=== PATIENT | male | born 1975 | race Caucasian/White ===

== ENCOUNTER 2016-11-02 06:50 | Inpatient (IN) | payer SELFPAY ==
[~2016-11-02] VITALS: Ht 180.3 cm; Wt 107.8 kg
[2016-11-02] VITALS (8 sets, daily range): BP systolic 144–188; BP diastolic 75–111; PULSE 70–122; RESP 18–22; TEMP 97.6–99.2; O2SAT 94–95
[~2016-11-02 06:50] MED LIST: BENT20TA PO; CARA1TAB6 PO; PRIL20CA9 PO
--- NOTE | 2016-11-02 07:27 | PD ---
HPI Chief Complaint: Abdominal Pain Time Seen by Provider: 07:12 Travel History International Travel<30 days: No Contact w/Intl Traveler<30days: No Traveled to known affect area: No History of Present Illness HPI This patient complains of abdominal pain. He is a alcoholic who was drinking heavily yesterday. He was seen here yesterday and I reviewed that workup and no. He has history of drug-seeking behavior. He complains of epigastric pain. It sounds like he gets flares of epigastric pain when he drinks but continues to drink. Complains of nausea, some emesis without blood in it. No diarrhea or lower quadrant abdominal pains. He has no gallbladder. Denies fever. Symptoms severity is moderate. No alleviating factors. Duration 2 days PFSH Past Medical History Diminished Hearing: No Gastrointestinal Disorders: Yes GERD: Yes Hepatitis: Yes (C) Hypertension: No Musculoskeletal: Yes (CHRONIC BACK PAIN) Pancreatitis: Yes Tetanus Vaccination: < 5 Years Past Surgical History Cholecystectomy: Yes (2005) Social History Alcohol Use: Yes (PT ADMITS TO DRINKING alcohol daily; unknown amount mixed drinks 11/01/16) Tobacco Use: No ("QUIT OCT 2015" hx cigs 1 ppd) Substance Use: No (QUIT 2011: HEROIN) Allergies-Medications (Allergen,Severity, Reaction): Coded Allergies: No Known Allergies (Unverified , 11/02/16) Reported Meds & Prescriptions Reported Meds & Active Scripts Active Prilosec (Omeprazole) 20 Mg Cap 20 Mg PO DAILY Review of Systems General / Constitutional: No: Fever Eyes: No: Visual changes HENT: No: Headaches Cardiovascular: No: Chest Pain or Discomfort Respiratory: No: Shortness of Breath Gastrointestinal: Positive: Nausea, Vomiting, Abdominal Pain Genitourinary: No: Dysuria Musculoskeletal: No: Pain Skin: No Rash Neurologic: No: Weakness Psychiatric: Positive: Substance Abuse, No: Depression Endocrine: No: Polydipsia Hematologic/Lymphatic: No: Easy Bruising Physical Exam Narrative GENERAL: Well-nourished, well-developed patient with epigastric pain. SKIN: Warm and dry. HEAD: Atraumatic. Normocephalic. EYES: Pupils equal and round. No scleral icterus. No injection or drainage. ENT: No nasal bleeding or discharge. Mucous membranes pink and moist. NECK: Trachea midline. No JVD. CARDIOVASCULAR: Regular rate and rhythm. No murmur appreciated. RESPIRATORY: No accessory muscle use. Clear to auscultation. Breath sounds equal bilaterally. GASTROINTESTINAL: Abdomen soft, epigastric is tender without rebound or guarding , nondistended. Hepatic and splenic margins not palpable. MUSCULOSKELETAL: No obvious deformities. No clubbing. No cyanosis. No edema. NEUROLOGICAL: Awake and alert. No obvious cranial nerve deficits. Motor grossly within normal limits. Normal speech. PSYCHIATRIC: Appropriate mood and affect; insight and judgment poor . Data Data Last Documented VS Vital Signs Date Time Temp Pulse Resp B/P Pulse Ox O2 Delivery O2 Flow Rate FiO2 11/02/16 08:35 93 18 173/96 95 Room Air 11/02/16 07:07 98.1 Orders Complete Blood Count With Diff (11/02/16 07:23) Comprehensive Metabolic Panel (11/02/16 07:23) Lipase (11/02/16 07:23) Iv Access Insert/Monitor (11/02/16 07:23) Ecg Monitoring (11/02/16 07:23) Oximetry (11/02/16 07:23) NPO (11/02/16 07:23) Morphine Inj (Morphine Inj) (11/02/16 07:30) Ondansetron Inj (Zofran Inj) (11/02/16 07:30) Sodium Chloride 0.9% Flush (Ns Flush) (11/02/16 07:30) Sodium Chlor 0.9% 1000 Ml Inj (Ns 1000 M (11/02/16 07:30) Admit To Inpatient (11/02/16 ) Vital Signs (Adult) Q4H (11/02/16 08:23) Activity Oob With Assistance (11/02/16 08:23) Diet Npo (11/02/16 Breakfast) Ondansetron Inj (Zofran Inj) (11/02/16 08:30) Magnesium Hydroxide Liq (Milk Of Magnesi (11/02/16 08:30) Comprehensive Metabolic Panel (11/03/16 06:00) Scd Bilateral/Knee High RENO.BID (11/02/16 08:23) Luis Felipe Bilateral/Knee High RENO.QSHIFT (11/02/16 08:23) Naloxone Inj (Narcan Inj) (11/02/16 08:30) Inpatient Certification (11/02/16 ) Ns + Kcl 20 Meq Inj (Ns + Kcl 20 Meq Inj (11/02/16 08:30) Morphine Inj (Morphine Inj) (11/02/16 08:30) Lipase (11/03/16 06:00) Alcohol Withdrawal Asmt-Ciwa Q4HX18 (11/02/16 08:23) Flumazenil Inj (Romazicon Inj) (11/02/16 08:30) Lorazepam (Ativan) (11/02/16 08:30) Lorazepam Inj (Ativan Inj) (11/02/16 08:30) Lorazepam (Ativan) (11/02/16 08:30) Lorazepam Inj (Ativan Inj) (11/02/16 08:30) Lorazepam Inj (Ativan Inj) (11/02/16 08:30) Lorazepam Inj (Ativan Inj) (11/02/16 08:30) Admit Order (Ed Use Only) (11/02/16 08:53) Labs Laboratory Tests Test 11/02/16 07:30 White Blood Count 6.8 TH/MM3 Red Blood Count 5.70 MIL/MM3 Hemoglobin 17.2 GM/DL Hematocrit 50.5 % Mean Corpuscular Volume 88.5 FL Mean Corpuscular Hemoglobin 30.1 PG Mean Corpuscular Hemoglobin 34.0 % Concent Red Cell Distribution Width 12.8 % Platelet Count 288 TH/MM3 Mean Platelet Volume 8.9 FL Neutrophils (%) (Auto) 59.8 % Lymphocytes (%) (Auto) 27.9 % Monocytes (%) (Auto) 10.0 % Eosinophils (%) (Auto) 0.2 % Basophils (%) (Auto) 2.1 % Neutrophils # (Auto) 4.1 TH/MM3 Lymphocytes # (Auto) 1.9 TH/MM3 Monocytes # (Auto) 0.7 TH/MM3 Eosinophils # (Auto) 0.0 TH/MM3 Basophils # (Auto) 0.1 TH/MM3 CBC Comment DIFF FINAL Differential Comment Sodium Level 139 MEQ/L Potassium Level 3.7 MEQ/L Chloride Level 102 MEQ/L Carbon Dioxide Level 24.9 MEQ/L Anion Gap 12 MEQ/L Blood Urea Nitrogen 15 MG/DL Creatinine 0.98 MG/DL Estimat Glomerular Filtration 83 ML/MIN Rate Random Glucose 223 MG/DL Calcium Level 8.6 MG/DL Total Bilirubin 1.0 MG/DL Aspartate Amino Transf 308 U/L (AST/SGOT) Alanine Aminotransferase 413 U/L (ALT/SGPT) Alkaline Phosphatase 147 U/L Total Protein 8.1 GM/DL Albumin 3.7 GM/DL Lipase 1289 U/L MDM Medical Decision Making Medical Screen Exam Complete: Yes Emergency Medical Condition: Yes Medical Record Reviewed: Yes Differential Diagnosis Differential diagnosis includes pancreatitis, biliary colic, hepatitis, GERD, peptic ulcer disease. Narrative Course I have reviewed the patient's electronic medical record. Reviewed yesterday's visit as well as several other during the course of this past year. He's had 3 CTs of the abdomen and pelvis this year all without emergent findings IV placed I gave him 1 L normal saline IV and IV Zofran and 1 dose of 4 mg IV morphine CBC is normal Metabolic profile is normal LFTs are elevated as expected Lipase is elevated at 1300 On recheck patient is still having a lot of pain and nausea and tachycardic Admitted him for bowel rest and IV fluid and symptom relief with acute alcohol- induced pancreatitis and discussed with hospitalist Diagnosis Primary Impression: Alcohol-induced acute pancreatitis Qualified Code: K85.20 - Alcohol-induced acute pancreatitis without infection or necrosis Admitting Information Admitting Physician Requests: Admit Ganesh Akers MD Nov 02, 2016 07:27
[2016-11-02] MEDS ORDERED: MORPHINE SULFATE 4 MG/ML INJ IV PUSH ONE (07:30)
[2016-11-02] MEDS ORDERED: ONDANSETRON HCL 4 MG/2 ML VIAL IVP ONE (07:30)
[2016-11-02] MEDS ORDERED: SODIUM CHLOR 0.9% 1000 ML INJ 1,000 ML IV ONE (07:30)
[2016-11-02] MEDS: SODIUM CHLORIDE 0.9% FLUSH 5 ML FLUSH IVF PRN ×2 (07:32→09:01)
[2016-11-02 07:47] LABS: AUTOMATED NEUTROPHIL # 4.1 TH/MM3 (1.8-7.7); BASOPHIL # 0.1 TH/MM3 (0-0.2); BASOPHIL % 2.1 % (0.0-2.0); EOSINOPHIL % 0.2 % (0.0-4.0); HEMATOCRIT 50.5 % (39.0-51.0); HEMO FLAGS DIFF FINAL; LYMPH % 27.9 % (9.0-44.0); LYMPHOCYTE # 1.9 TH/MM3 (1.0-4.8); MEAN CELL VOLUME 88.5 FL (80.0-100.0); MEAN CORPUSCULAR HEMOGLOBIN 30.1 PG (27.0-34.0); NEUT % 59.8 % (16.0-70.0); PLATELET COUNT 288 TH/MM3 (150-450); RED CELL DISTRIBUTION WIDTH 12.8 % (11.6-17.2); WHITE BLOOD COUNT 6.8 TH/MM3 (4.0-11.0)
[2016-11-02 07:53] LABS: CHLORIDE 102 MEQ/L (98-107); POTASSIUM 3.7 MEQ/L (3.5-5.1); SODIUM (NA) 139 MEQ/L (136-145)
[2016-11-02 07:57] LABS: ANION GAP 12 MEQ/L (5-15); BICARBONATE 24.9 MEQ/L (21.0-32.0); BLOOD UREA NITROGEN 15 MG/DL (7-18)
[2016-11-02 07:59] LABS: ALT (GPT) 413 U/L (12-78); AST (GOT) 308 U/L (15-37); GLOMERULAR FILTRATION RATE 83 ML/MIN (>89)
[2016-11-02 08:02] LABS: ALKALINE PHOSPHATASE 147 U/L (45-117)
[2016-11-02] MEDS ORDERED: LORazepam 2 MG/ML VIAL IV PUSH PRN ×3 (08:30→14:30)
[2016-11-02] MEDS ORDERED: LORazepam 2 MG TAB PO PRN (08:30)
[2016-11-02] MEDS ORDERED: MAGNESIUM HYDROXIDE SUSP 30 ML CUP PO PRN (08:30)
[2016-11-02] MEDS ORDERED: FLUMAZENIL 0.5 MG/5 ML VIAL IV PUSH PRN (08:30)
[2016-11-02] MEDS ORDERED: NALOXONE HCL 0.4 MG/ML AMP IV PRN (08:30)
[2016-11-02] MEDS: MORPHINE SULFATE 4 MG/ML INJ IV PUSH PRN ×2 (09:01→11:54)
[2016-11-02] MEDS: ONDANSETRON HCL 4 MG/2 ML VIAL IVP PRN ×3 (09:01→22:19)
[2016-11-02] MEDS: NS + KCL 20 MEQ INJ 1,000 ML IV SCH ×3 (09:01→18:08)
[2016-11-02] MEDS: LORazepam 2 MG/ML VIAL IV PUSH PRN ×3 (11:08→21:02)
--- NOTE | 2016-11-02 13:55 | HHI.HP ---
[facility] Service [facility] Primary Care Physician No Primary Care Physician Admission Diagnosis acute alcohol induced pancreatitis Diagnoses: (1) Alcohol-induced acute pancreatitis Diagnosis: Principal (2) Elevated LFTs Diagnosis: Principal (3) Alcohol abuse Diagnosis: Principal Chief Complaint: "pancreatitis" Travel History International Travel<30 Days: No Contact w/Intl Traveler <30 Da: No Traveled to Known Affected Are: No History of Present Illness 41-year-old male with history of hepatitis C, GERD, chronic back pain , drug and alcohol abuse presents with complaint of pancreatitis. Patient states he was hospitalized for this most recently last year. He states he has "a lot" of pain pointing to epigastric region and has had bilious vomiting. states pain started 4 days ago. Patient admits to radiation of pain to back. Admits to diarrhea. He denies any chest pain. Denies dysuria or constipation. Patient rates his last alcoholic drink was yesterday and his states that he will binge drink every 3-4 months. 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 Patient only takes ibuprofen for his back pain. Patient was evaluated in ED yesterday for same symptoms and diagnosed with alcoholic gastritis and prescribed Carafate , Bentyl, and Prilosec. Review of Systems ROS Limitations: Clinical Condition (severe pain) Eyes: DENIES: Blurred vision Cardiovascular: DENIES: Chest pain Gastrointestinal: COMPLAINS OF: Abdominal pain, Diarrhea Genitourinary: DENIES: Dysuria Musculoskeletal: COMPLAINS OF: Back pain Neurologic: DENIES: Headache Past Family Social History Past Medical History Hepatitis C; has not received treatment. GERD Chronic back pain Past Surgical History Cholecystectomy Reported Medications Prilosec (Omeprazole) 20 Mg Cap 20 Mg PO DAILY Ibuprofen for back pain Allergies: Coded Allergies: No Known Allergies (Unverified , 11/02/16) Family History No significant medical problems. Social History Patient admits to alcohol use. states he binge drinks every 3-4 months. ED note indicates the patient drinks alcohol daily with an unknown amount of mixed drinks on 11/01/16. Patient denies current cigarette smoking; quit in Oct 2015 per EMR. Patient denies illicit drug use. EMR indicates the patient quit using heroin in 2011. Physical Exam Vital Signs Vital Signs Date Time Temp Pulse Resp B/P Pulse Ox O2 Delivery O2 Flow Rate FiO2 11/02/16 11:00 98.0 90 19 150/86 95 11/02/16 09:06 16 11/02/16 08:35 93 18 173/96 95 Room Air 11/02/16 07:38 100 18 150/92 95 Room Air 11/02/16 07:38 18 11/02/16 07:36 18 95 Room Air 11/02/16 07:07 98.1 122 20 159/92 95 Room Air 11/02/16 06:59 98.1 122 22 166/111 95 Physical Exam GENERAL: This is a well-nourished, well-developed patient who appears in significant pain. SKIN: No rashes, ecchymoses or lesions. Face has red complexion. HEAD: Atraumatic. Normocephalic. EYES: Pupils normal. No scleral icterus. No injection or drainage. ENT: MMM. Airway patent. NECK: Trachea midline. CARDIOVASCULAR: Regular rate and rhythm. RESPIRATORY: Clear to auscultation. Breath sounds equal bilaterally. No wheezes , rales, or rhonchi. GASTROINTESTINAL: NABS. Abdomen soft, nondistended. Tender over epigastric region. MUSCULOSKELETAL: No lower extremity edema bilaterally. NEUROLOGICAL: Awake and alert. Motor grossly within normal limits. Normal speech. Laboratory Laboratory Tests Test 11/02/16 07:30 White Blood Count 6.8 Red Blood Count 5.70 Hemoglobin 17.2 Hematocrit 50.5 Mean Corpuscular Volume 88.5 Mean Corpuscular Hemoglobin 30.1 Mean Corpuscular Hemoglobin 34.0 Concent Red Cell Distribution Width 12.8 Platelet Count 288 Mean Platelet Volume 8.9 Neutrophils (%) (Auto) 59.8 Lymphocytes (%) (Auto) 27.9 Monocytes (%) (Auto) 10.0 Eosinophils (%) (Auto) 0.2 Basophils (%) (Auto) 2.1 Neutrophils # (Auto) 4.1 Lymphocytes # (Auto) 1.9 Monocytes # (Auto) 0.7 Eosinophils # (Auto) 0.0 Basophils # (Auto) 0.1 CBC Comment DIFF FINAL Differential Comment Sodium Level 139 Potassium Level 3.7 Chloride Level 102 Carbon Dioxide Level 24.9 Anion Gap 12 Blood Urea Nitrogen 15 Creatinine 0.98 Estimat Glomerular Filtration 83 Rate Random Glucose 223 Calcium Level 8.6 Total Bilirubin 1.0 Aspartate Amino Transf 308 (AST/SGOT) Alanine Aminotransferase 413 (ALT/SGPT) Alkaline Phosphatase 147 Total Protein 8.1 Albumin 3.7 Lipase 1289 Result Diagram: 11/02/16 0730 11/02/16 0730 Assessment and Plan Assessment and Plan 41-year-old male with: Alcohol-induced pancreatitis: Lipase 1289. Glucose 223. White blood cell count normal. -IVF -Alternate Zofran and Reglan for nausea -Dilaudid prn pain as directed -NPO, bowel rest Elevated LFTs: AST 308, ALT 413, and alkaline phosphatase 147 elevated from prior labs yesterday and in September. Could be related to pancreatitis, but patient also has history of hepatitis C, and has not undergone treatment. Patient has h/o cholecystectomy. -Monitor LFTs. Alcohol abuse/withdrawal: Last drink yesterday per patient. Patient is hypertensive and tachycardic which could be related to pain versus EtOH withdrawal. -CIWA protocol with Ativan -Alcohol withdrawal precautions -Monitor vitals -Clonidine prn for SBP>180. DVT prevention: TEDs/SCDs. Written by Angela Pena PA-C acting as scribe for Dr. Patten on 11/02/16 at ~1315. The documentation accurately reflects the work and decisions performed face-to- face by me Dr. Patten on 11/02/16 at ~1315. Discussed Condition With ED physician, patient Physician Certification 2 Midnight Certification Type: Admission for Inpatient Services Order for Inpatient Services The services are ordered in accordance with Medicare regulations or non- Medicare payer requirements, as applicable. In the case of services not specified as inpatient-only, they are appropriately provided as inpatient services in accordance with the 2-midnight benchmark. Estimated LOS (days): 2 days is the estimated time the patient will need to remain in the hospital, assuming treatment plan goals are met and no additional complications. Post-Hospital Plan: Home Problem Qualifiers (1) Alcohol-induced acute pancreatitis: Qualified Code: K85.20 - Alcohol-induced acute pancreatitis without infection or necrosis Angela Pena Nov 02, 2016 13:55
[2016-11-02] MEDS ORDERED: HYDROmorphone HCL PF 1 MG/ML VIAL IV PUSH PRN (14:00)
[2016-11-02] MEDS: METOCLOPRAMIDE HCL 10 MG/2 ML VIAL IVS PRN ×2 (14:05→20:12)
[2016-11-02] MEDS: HYDROmorphone HCL PF 1 MG/ML VIAL IV PUSH PRN ×3 (14:06→22:19)
[2016-11-02] MEDS: cloNIDine HCL 0.1 MG TAB PO PRN (20:13)
[2016-11-02] MEDS: ENALAPRILAT 1.25 MG/ML VIAL IV PRN (23:46)
[2016-11-03] VITALS: BP 178/108; PULSE 109; RESP 20; TEMP 98.5; O2SAT 94
[2016-11-03] MEDS: LORazepam 2 MG/ML VIAL IV PUSH PRN ×3 (00:11→10:29)
[2016-11-03] MEDS: HYDROmorphone HCL PF 1 MG/ML VIAL IV PUSH PRN ×7 (02:25→22:55)
[2016-11-03 04:00] VITALS: BP 186/104; PULSE 90; RESP 20; TEMP 98.5; O2SAT 96
[2016-11-03] MEDS: METOCLOPRAMIDE HCL 10 MG/2 ML VIAL IVS PRN ×3 (04:57→22:57)
[2016-11-03] MEDS: cloNIDine HCL 0.1 MG TAB PO PRN ×2 (05:25→23:55)
[2016-11-03] MEDS: NS + KCL 20 MEQ INJ 1,000 ML IV SCH ×2 (05:26→16:30)
[2016-11-03 06:11] LABS: CHLORIDE 104 MEQ/L (98-107); POTASSIUM 3.7 MEQ/L (3.5-5.1); SODIUM (NA) 139 MEQ/L (136-145)
[2016-11-03 06:16] LABS: ANION GAP 9 MEQ/L (5-15); BICARBONATE 25.7 MEQ/L (21.0-32.0); BLOOD UREA NITROGEN 11 MG/DL (7-18)
[2016-11-03 06:18] LABS: ALT (GPT) 286 U/L (12-78); AST (GOT) 141 U/L (15-37); GLOMERULAR FILTRATION RATE 87 ML/MIN (>89)
[2016-11-03 06:20] LABS: TOTAL BILIRUBIN ADULT 2.6 MG/DL (0.2-1.0)
[2016-11-03 06:21] LABS: ALKALINE PHOSPHATASE 123 U/L (45-117)
[2016-11-03 08:00] VITALS: BP 178/103; PULSE 100; RESP 20; TEMP 97.8; O2SAT 95
[2016-11-03] MEDS: ENALAPRILAT 1.25 MG/ML VIAL IV PRN ×3 (08:41→19:50)
--- NOTE | 2016-11-03 11:10 | HHI.PR ---
Subjective Remarks Follow-up pancreatitis, alcohol withdrawal. Still reporting significant abdominal pain. States that the pain medication works for about 3 hours, but then the pain becomes severe again. No nausea or vomiting this morning. Objective Vitals Vital Signs Date Time Temp Pulse Resp B/P Pulse Ox O2 Delivery O2 Flow Rate FiO2 11/03/16 08:00 97.8 100 20 178/103 95 11/03/16 04:00 98.5 90 20 186/104 96 11/03/16 00:00 98.5 109 20 178/108 94 Automatic Cuff 11/02/16 20:00 99.2 70 20 188/98 94 11/02/16 16:00 97.6 88 18 144/75 95 I/O 11/02/16 11/02/16 11/02/16 11/03/16 11/03/16 11/03/16 07:00 15:00 23:00 07:00 15:00 23:00 Intake Total 1000 ml 60 ml 60 ml Output Total 320 ml Balance 1000 ml 60 ml -260 ml Intake Oral 60 ml 60 ml IV Total 1000 ml Output Urine Total 320 ml Bladder Scan Volume Amount 99 ml # Voids 2 3 # Bowel Movements 0 Result Diagram: 11/02/16 0730 11/03/16 0535 Objective Remarks General: No acute distress. Appears uncomfortable. Heart: Regular rate and rhythm. No murmur. Lungs: Clear to auscultation bilaterally. No wheezes, rales, or rhonchi. Breathing is nonlabored. Abdomen: Soft, nontender, nondistended. Voluntary guarding. Extremities: No lower extremity edema. Psych: Alert and oriented. Urinary Catheter: No Vascular Central Line Catheter: No A/P Problem List: (1) Alcohol-induced acute pancreatitis ICD Code: K85.20 Status: Acute (2) Elevated LFTs ICD Code: R94.5 Status: Acute (3) Alcohol abuse ICD Code: F10.10 Status: Chronic Assessment and Plan 1. Alcohol induced pancreatitis: Lipase increasing. Nothing by mouth except meds. Continue pain control, IV fluids. Antiemetics as needed. Check abdominal CT. 2. Elevated LFTs: Secondary to alcohol abuse, history of hepatitis C. Trending down. Monitor labs. 3. Alcohol abuse, withdrawal: Continue CIWA protocol. Withdrawal precautions. 4. DVT prophylaxis: SCDs, ISSAC hose. Problem Qualifiers (1) Alcohol-induced acute pancreatitis: Qualified Code: K85.20 - Alcohol-induced acute pancreatitis without infection or necrosis Ganesh Patten MD Nov 03, 2016 11:10
[2016-11-03] MEDS: PANTOPRAZOLE SOD 40 MG DELAYED RELEASE TAB PO SCH (11:11)
[2016-11-03 12:00] VITALS: BP 167/108; PULSE 100; RESP 20; TEMP 99.4; O2SAT 95
[2016-11-03] MEDS ORDERED: DIATRIZOATE MEGLUM/DIATRIZOATE SOD 9 ML CUP PO ONE (12:00)
[2016-11-03] MEDS ORDERED: HYDROmorphone HCL PF 1 MG/ML VIAL IV PUSH PRN (14:00)
[2016-11-03] MEDS ORDERED: IOHEXOL 300 MG/ML 50 ML BTL (for RAD DIAG) IV ONE (14:16)
--- NOTE | 2016-11-03 14:59 | RADHPO ---
EXAM DATE/TIME: 11/03/2016 14:00 [facility] COMPARISON: CT ABDOMEN & PELVIS W CONTRAST, September 24, 2016, 8:55. INDICATIONS : Increasing abdominal pain with pancreatitis. IV CONTRAST: 92 cc Omnipaque 300 (iohexol) IV ORAL CONTRAST: No oral contrast ingested. RADIATION DOSE: 22.60 CTDIvol (mGy) MEDICAL HISTORY : Pancreatitis. SURGICAL HISTORY : Cholecystectomy. ENCOUNTER: Initial ACUITY: 4 - 6 days PAIN SCALE: 7/10 LOCATION: Bilateral upper quadrant TECHNIQUE: Volumetric scanning of the abdomen and pelvis was performed. Using automated exposure control and ad justment of the mA and/or kV according to patient size, radiation dose was kept as low as reasonably achievable to obtain optimal diagnostic quality images. FINDINGS: LOWER LUNGS: There is atelectasis at the lung bases. LIVER: The liver measures 21.5 cm in length. No focal lesion is seen. There has been prior cholecystectomy c lips in the gallbladder fossa. There is no dilation of the biliary tree. SPLEEN: Normal size without lesion. PANCREAS: There is inflammatory change surrounding the pancreas. No pancreatic duct dilatation is present and n o pancreatic mass is seen. There is no abnormal fluid collection or pancreatic necrosis. KIDNEYS: Normal in size and shape. There is no mass, stone or hydronephrosis. ADRENAL GLANDS: Within normal limits. VASCULAR: There is no aortic aneurysm. BOWEL/MESENTERY: The stomach, small bowel, and colon demonstrate no acute abnormality. There is no free intraperitone al air. There is trace free fluid in the pelvis. A small hiatal hernia is present. ABDOMINAL WALL: Within normal limits. RETROPERITONEUM: There is no lymphadenopathy. BLADDER: No wall thickening or mass. REPRODUCTIVE: Within normal limits. INGUINAL: There is no lymphadenopathy or hernia. MUSCULOSKELETAL: No acute osseous abnormality is identified. CONCLUSION: 1. Abnormal inflammatory changes surrounding the pancreas diagnostic of acute pancreatitis. No acute pancreatitis associated complications are present. 2. There is a small volume of free fluid in the pelvis likely secondary to the pancreatic inflammatio n. 3. Small hiatal hernia. Yannick Colvin MD on November 03, 2016 at 14:50 Board Certified Radiologist. This report was verified electronically.
[2016-11-03 16:00] VITALS: BP 150/98; PULSE 100; RESP 20; TEMP 98.3; O2SAT 94
[2016-11-03] MEDS: ONDANSETRON HCL 4 MG/2 ML VIAL IVP PRN (19:50)
[2016-11-03] MEDS: LORazepam 1 MG TAB PO PRN ×2 (19:52→23:55)
[2016-11-03 20:33] VITALS: PULSE 102; RESP 22; TEMP 99.3; O2SAT 94
[2016-11-04] VITALS: BP 169/113; PULSE 108; RESP 20; TEMP 99.5; O2SAT 95
[2016-11-04] MEDS: HYDROmorphone HCL PF 1 MG/ML VIAL IV PUSH PRN ×7 (01:56→21:57)
[2016-11-04] MEDS: NS + KCL 20 MEQ INJ 1,000 ML IV SCH ×3 (01:58→20:14)
[2016-11-04 04:00] VITALS: BP_SYST 170; BP_SYST 174; BP_DIAS 100; PULSE 71; RESP 18; TEMP 97.7; O2SAT 95
[2016-11-04] MEDS: ENALAPRILAT 1.25 MG/ML VIAL IV PRN ×2 (04:58→12:38)
[2016-11-04] MEDS: ONDANSETRON HCL 4 MG/2 ML VIAL IVP PRN (05:00)
[2016-11-04 06:29] LABS: AUTOMATED NEUTROPHIL # 6.1 TH/MM3 (1.8-7.7); BASOPHIL # 0.1 TH/MM3 (0-0.2); BASOPHIL % 0.9 % (0.0-2.0); EOSINOPHIL # 0.1 TH/MM3 (0-0.4); EOSINOPHIL % 0.6 % (0.0-4.0); HEMATOCRIT 46.5 % (39.0-51.0); HEMO FLAGS DIFF FINAL; LYMPH % 19.3 % (9.0-44.0); LYMPHOCYTE # 1.7 TH/MM3 (1.0-4.8); MEAN CELL VOLUME 89.4 FL (80.0-100.0); MEAN CORPUSCULAR HEMOGLOBIN 29.9 PG (27.0-34.0); MEAN CORPUSCULAR HGB CONC 33.4 % (32.0-36.0); MONO % 10.8 % (0.0-8.0); NEUT % 68.4 % (16.0-70.0); PLATELET COUNT 190 TH/MM3 (150-450); RED CELL DISTRIBUTION WIDTH 12.4 % (11.6-17.2); WHITE BLOOD COUNT 8.9 TH/MM3 (4.0-11.0)
[2016-11-04 06:37] LABS: CHLORIDE 104 MEQ/L (98-107); POTASSIUM 3.9 MEQ/L (3.5-5.1); SODIUM (NA) 138 MEQ/L (136-145)
[2016-11-04 06:42] LABS: ANION GAP 11 MEQ/L (5-15); BICARBONATE 23.3 MEQ/L (21.0-32.0); BLOOD UREA NITROGEN 12 MG/DL (7-18); MAGNESIUM 1.7 MG/DL (1.5-2.5)
[2016-11-04 06:45] LABS: ALT (GPT) 187 U/L (12-78); AST (GOT) 98 U/L (15-37); GLOMERULAR FILTRATION RATE 103 ML/MIN (>89)
[2016-11-04 06:47] LABS: TOTAL BILIRUBIN ADULT 2.5 MG/DL (0.2-1.0)
[2016-11-04 06:48] LABS: ALKALINE PHOSPHATASE 102 U/L (45-117)
[2016-11-04] MEDS: PANTOPRAZOLE SOD 40 MG DELAYED RELEASE TAB PO SCH (07:56)
[2016-11-04] MEDS: cloNIDine HCL 0.1 MG TAB PO PRN (07:56)
[2016-11-04 08:00] VITALS: BP 165/105; PULSE 96; RESP 20; TEMP 99.4; O2SAT 95
--- NOTE | 2016-11-04 11:07 | HHI.PR ---
Subjective Remarks Follow up pancreatitis. Still having significant pain. No vomiting, but still having nausea. Objective Vitals Vital Signs Date Time Temp Pulse Resp B/P Pulse Ox O2 Delivery O2 Flow Rate FiO2 11/04/16 08:00 99.4 96 20 165/105 95 11/04/16 04:00 97.7 71 18 174/100 95 11/04/16 00:00 99.5 108 20 169/113 95 11/03/16 20:33 99.3 102 22 94 Manual Cuff/Auscultation 11/03/16 16:00 98.3 100 20 150/98 94 11/03/16 12:00 99.4 100 20 167/108 95 I/O 11/03/16 11/03/16 11/03/16 11/04/16 11/04/16 11/04/16 07:00 15:00 23:00 07:00 15:00 23:00 Intake Total 60 ml 0 ml 1150 ml Output Total 320 ml 800 ml 605 ml Balance -260 ml -800 ml 1150 ml -605 ml Intake Oral 60 ml 0 ml IV Total 1150 ml Output Urine Total 320 ml 800 ml 605 ml Bladder Scan Volume Amount 99 ml # Voids 3 2 # Bowel Movements 0 1 Result Diagram: 11/04/16 0543 11/04/16 0543 Imaging Last Impressions Abdomen/Pelvis CT 11/03/16 1203 Signed Impressions: Service Date/Time: October 14:00 - CONCLUSION: 1. Abnormal inflammatory changes surrounding the pancreas diagnostic of acute pancreatitis. No acute pancreatitis associated complications are present. 2. There is a small volume of free fluid in the pelvis likely secondary to the pancreatic inflammation. 3. Small hiatal hernia. Yannick Colvin MD Objective Remarks General: No acute distress. Appears uncomfortable. Heart: Regular rate and rhythm. No murmur. Lungs: Clear to auscultation bilaterally. No wheezes, rales, or rhonchi. Breathing is nonlabored. Abdomen: Soft, tender to palpation in the right upper quadrant without guarding , nondistended. Extremities: No lower extremity edema. Psych: Alert and oriented. Urinary Catheter: No Vascular Central Line Catheter: No A/P Problem List: (1) Alcohol-induced acute pancreatitis ICD Code: K85.20 Status: Acute (2) Elevated LFTs ICD Code: R94.5 Status: Acute (3) Alcohol abuse ICD Code: F10.10 Status: Chronic Assessment and Plan 1. Alcohol induced pancreatitis: Lipase improving. Nothing by mouth except meds. Continue pain control, IV fluids. Antiemetics as needed. CT abdomen/ pelvis shows inflammation around the pancreas. 2. Elevated LFTs: Secondary to alcohol abuse, history of hepatitis C. Trending down. Monitor labs. 3. Alcohol abuse, withdrawal: Continue CIWA protocol. Withdrawal precautions. 4. DVT prophylaxis: ISSAC O[place]. Problem Qualifiers (1) Alcohol-induced acute pancreatitis: Qualified Code: K85.20 - Alcohol-induced acute pancreatitis without infection or necrosis Ganesh Patten MD Nov 04, 2016 11:07
[2016-11-04 12:00] VITALS: BP 135/105; PULSE 101; RESP 20; TEMP 97; O2SAT 96
[2016-11-04 18:40] VITALS: BP 155/90; PULSE 88; RESP 20; TEMP 98.5; O2SAT 96
[2016-11-04] MEDS ORDERED: oxyCODONE/ACETAMINOPHEN 7.5 MG/325 MG TAB PO PRN (18:45)
[2016-11-04 20:00] VITALS: BP 178/102; PULSE 89; RESP 20; TEMP 98.3; O2SAT 97
[2016-11-04] MEDS: oxyCODONE/ACETAMINOPHEN 10 MG/325 MG TAB PO PRN ×2 (20:15→23:49)
[2016-11-05] VITALS: BP 168/98; PULSE 90; RESP 21; TEMP 98.1; O2SAT 92
[2016-11-05] MEDS: HYDROmorphone HCL PF 1 MG/ML VIAL IV PUSH PRN ×6 (01:59→22:31)
[2016-11-05 04:00] VITALS: BP 161/91; PULSE 89; RESP 20; TEMP 98.1; O2SAT 96
[2016-11-05] MEDS: oxyCODONE/ACETAMINOPHEN 10 MG/325 MG TAB PO PRN ×5 (04:19→20:32)
[2016-11-05] MEDS: NS + KCL 20 MEQ INJ 1,000 ML IV SCH ×2 (06:04→16:06)
[2016-11-05 08:00] VITALS: BP 150/87; PULSE 97; RESP 18; TEMP 96.9; O2SAT 96
[2016-11-05 08:10] LABS: CHLORIDE 101 MEQ/L (98-107); POTASSIUM 3.8 MEQ/L (3.5-5.1); SODIUM (NA) 136 MEQ/L (136-145)
[2016-11-05 08:16] LABS: ANION GAP 12 MEQ/L (5-15); BICARBONATE 22.7 MEQ/L (21.0-32.0); BLOOD UREA NITROGEN 12 MG/DL (7-18)
[2016-11-05 08:19] LABS: ALT (GPT) 161 U/L (12-78); AST (GOT) 104 U/L (15-37); GLOMERULAR FILTRATION RATE 110 ML/MIN (>89)
[2016-11-05] MEDS: PANTOPRAZOLE SOD 40 MG DELAYED RELEASE TAB PO SCH (08:20)
[2016-11-05 08:22] LABS: ALKALINE PHOSPHATASE 100 U/L (45-117)
[2016-11-05 12:00] VITALS: BP 150/87; PULSE 92; RESP 18; TEMP 96.9; O2SAT 96
[2016-11-05 16:00] VITALS: BP 162/89; PULSE 89; RESP 20; TEMP 98.3; O2SAT 96
--- NOTE | 2016-11-05 16:19 | HHI.PR ---
Subjective Remarks The patient reports ongoing pain today, essentially unchanged. No nausea or vomiting. Tolerating small amounts of clear liquids. Objective Vitals Vital Signs Date Time Temp Pulse Resp B/P Pulse Ox O2 Delivery O2 Flow Rate FiO2 11/05/16 12:00 96.9 92 18 150/87 96 11/05/16 08:00 96.9 97 18 150/87 96 11/05/16 05:15 20 11/05/16 04:00 98.1 89 20 161/91 96 11/05/16 02:19 20 11/05/16 00:00 98.1 90 21 168/98 92 11/04/16 20:00 98.3 89 20 178/102 97 11/04/16 18:40 98.5 88 20 155/90 96 I/O 11/04/16 11/04/16 11/04/16 11/05/16 11/05/16 11/05/16 07:00 15:00 23:00 07:00 15:00 23:00 Intake Total 0 ml 800 ml 800 ml 1147 ml Output Total 605 ml 600 ml Balance -605 ml 0 ml 800 ml 200 ml 1147 ml Intake Oral 0 ml IV Total 800 ml 800 ml 1147 ml Output Urine Total 605 ml 600 ml # Voids 2 2 1 # Bowel Movements 1 Result Diagram: 11/04/16 0543 11/05/16 0639 Imaging Last Impressions Abdomen/Pelvis CT 11/03/16 1203 Signed Impressions: Service Date/Time: October 14:00 - CONCLUSION: 1. Abnormal inflammatory changes surrounding the pancreas diagnostic of acute pancreatitis. No acute pancreatitis associated complications are present. 2. There is a small volume of free fluid in the pelvis likely secondary to the pancreatic inflammation. 3. Small hiatal hernia. Yannick Colvin MD Objective Remarks General: No acute distress. Appears uncomfortable. Heart: Regular rate and rhythm. No murmur. Lungs: Clear to auscultation bilaterally. No wheezes, rales, or rhonchi. Breathing is nonlabored. Abdomen: Soft, tender to palpation in the right upper quadrant with voluntary guarding, nondistended. Extremities: No lower extremity edema. Psych: Alert and oriented. Urinary Catheter: No Vascular Central Line Catheter: No A/P Problem List: (1) Alcohol-induced acute pancreatitis ICD Code: K85.20 Status: Acute (2) Elevated LFTs ICD Code: R94.5 Status: Acute (3) Alcohol abuse ICD Code: F10.10 Status: Chronic Assessment and Plan 1. Alcohol induced pancreatitis: Lipase trending down. Advanced to clear liquid diet. Continue pain control, IV fluids. Antiemetics as needed. CT abdomen/ pelvis shows inflammation around the pancreas. 2. Elevated LFTs: Secondary to alcohol abuse, history of hepatitis C. Trending down. Monitor labs. 3. Alcohol abuse, withdrawal: Continue CIWA protocol. Withdrawal precautions. No longer requiring lorazepam. 4. DVT prophylaxis: SCDs, ISSAC sidhu. Problem Qualifiers (1) Alcohol-induced acute pancreatitis: Qualified Code: K85.20 - Alcohol-induced acute pancreatitis without infection or necrosis Ganesh Patten MD Nov 05, 2016 16:18
[2016-11-05 20:00] VITALS: BP 162/111; PULSE 70; RESP 20; TEMP 97.1; O2SAT 99
[2016-11-05] MEDS: cloNIDine HCL 0.1 MG TAB PO PRN (20:31)
[2016-11-06] VITALS: BP 163/105; PULSE 70; RESP 20; TEMP 97.6; O2SAT 94
[2016-11-06] MEDS: oxyCODONE/ACETAMINOPHEN 10 MG/325 MG TAB PO PRN ×5 (00:28→19:49)
[2016-11-06] MEDS: NS + KCL 20 MEQ INJ 1,000 ML IV SCH ×3 (02:38→21:48)
[2016-11-06] MEDS: HYDROmorphone HCL PF 1 MG/ML VIAL IV PUSH PRN ×5 (02:38→21:45)
[2016-11-06 04:00] VITALS: BP 161/105; PULSE 81; RESP 20; TEMP 97.7; O2SAT 97
[2016-11-06 08:00] VITALS: BP 185/110; PULSE 85; RESP 20; TEMP 97.8; O2SAT 96
[2016-11-06] MEDS: PANTOPRAZOLE SOD 40 MG DELAYED RELEASE TAB PO SCH (08:35)
[2016-11-06] MEDS: cloNIDine HCL 0.1 MG TAB PO PRN (08:35)
[2016-11-06 08:47] LABS: CHLORIDE 101 MEQ/L (98-107); SODIUM (NA) 137 MEQ/L (136-145)
[2016-11-06 08:51] LABS: ANION GAP 13 MEQ/L (5-15); BICARBONATE 23.4 MEQ/L (21.0-32.0); BLOOD UREA NITROGEN 12 MG/DL (7-18)
[2016-11-06 08:54] LABS: ALT (GPT) 146 U/L (12-78); AST (GOT) 94 U/L (15-37); GLOMERULAR FILTRATION RATE 103 ML/MIN (>89)
[2016-11-06 08:56] LABS: TOTAL BILIRUBIN ADULT 1.7 MG/DL (0.2-1.0)
[2016-11-06 08:57] LABS: ALKALINE PHOSPHATASE 101 U/L (45-117)
[2016-11-06 12:00] VITALS: BP 135/79; PULSE 82; RESP 20; TEMP 97.2; O2SAT 94
[2016-11-06 15:56] VITALS: BP 145/88; PULSE 78; RESP 20; TEMP 97.3; O2SAT 96
--- NOTE | 2016-11-06 16:32 | HHI.PR ---
Subjective Remarks Follow-up for pancreatitis. Patient states he is feeling a lot better and his appetite is coming back but he states when the pain medication wears off he continues to have pain. Objective Vitals Vital Signs Date Time Temp Pulse Resp B/P Pulse Ox O2 Delivery O2 Flow Rate FiO2 11/06/16 15:56 97.3 78 20 145/88 96 11/06/16 12:00 97.2 82 20 135/79 94 11/06/16 08:00 97.8 85 20 185/110 96 11/06/16 07:27 18 11/06/16 04:00 97.7 81 20 161/105 97 11/06/16 03:10 20 11/06/16 00:00 97.6 70 20 163/105 94 11/05/16 20:00 97.1 70 20 162/111 99 I/O 11/05/16 11/05/16 11/05/16 11/06/16 11/06/16 11/06/16 07:00 15:00 23:00 07:00 15:00 23:00 Intake Total 800 ml 2227 ml 800 ml 750 ml Output Total 600 ml 400 ml 900 ml Balance 200 ml 1827 ml -100 ml 750 ml Intake Oral 280 ml 750 ml IV Total 800 ml 1947 ml 800 ml Output Urine Total 600 ml 400 ml 900 ml # Voids 6 # Bowel Movements 0 0 1 Result Diagram: 11/04/16 0543 11/06/16 0816 Imaging Last Impressions Abdomen/Pelvis CT 11/03/16 1203 Signed Impressions: Service Date/Time: October 14:00 - CONCLUSION: 1. Abnormal inflammatory changes surrounding the pancreas diagnostic of acute pancreatitis. No acute pancreatitis associated complications are present. 2. There is a small volume of free fluid in the pelvis likely secondary to the pancreatic inflammation. 3. Small hiatal hernia. Yannick Colvin MD Objective Remarks GENERAL: Well-nourished, well-developed patient in no apparent distress. SKIN: Warm and dry. HEAD: Atraumatic. Normocephalic. EYES: No scleral icterus. CARDIOVASCULAR: Regular rate and rhythm. RESPIRATORY: No accessory muscle use. RR normal. GASTROINTESTINAL: Abdomen soft, but tender over the right upper quadrant and epigastric region. No guarding. MUSCULOSKELETAL: No lower extremity edema. NEUROLOGICAL: Awake and alert. Motor grossly within normal limits. Normal speech. PSYCHIATRIC: Appropriate mood and affect; insight and judgment normal. Urinary Catheter: No Vascular Central Line Catheter: No A/P Problem List: (1) Alcohol-induced acute pancreatitis ICD Code: K85.20 Status: Acute (2) Elevated LFTs ICD Code: R94.5 Status: Acute (3) Alcohol abuse ICD Code: F10.10 Status: Chronic Assessment and Plan 41-year-old male with: 1. Alcohol induced pancreatitis: Lipase initially trending downward, but now starting to rise again. Advanced to clear liquid diet yesterday. Patient's pain is improved, but returns when pain medication wears off. Continue pain control, IV fluids. Antiemetics as needed. CT abdomen/pelvis shows inflammation around the pancreas. Consult GI. Discussed with Dr. Brewer. 2. Elevated LFTs: Secondary to alcohol abuse, history of hepatitis C. Trending down. Monitor labs. 3. Alcohol abuse, withdrawal: Continue CIWA protocol. Withdrawal precautions. No longer requiring lorazepam. 4. DVT prophylaxis: SCDs, ISSAC sidhu. Written by Angela Pena PA-C acting as scribe for Dr. Patten on 11/06/16 at 1620. The documentation accurately reflects the work and decisions performed face-to- face by me Dr. Patten on 11/06/16 at 1620. Problem Qualifiers (1) Alcohol-induced acute pancreatitis: Qualified Code: K85.20 - Alcohol-induced acute pancreatitis without infection or necrosis Angela Pena Nov 06, 2016 16:31 Ganesh Patten MD Nov 06, 2016 16:43
[2016-11-06 20:00] VITALS: BP 173/99; PULSE 70; RESP 20; TEMP 98; O2SAT 95
--- NOTE | 2016-11-06 20:48 | MB ---
cc: JOSEY CORTEZ MD DATE OF CONSULTATION: 11/06/2016. REASON FOR CONSULTATION: Acute pancreatitis. HISTORY OF PRESENT ILLNESS: This is a 41-year-old male patient with history of chronic hepatitis C, recurrent attacks of pancreatitis and gastroesophageal reflux disease who presented to the hospital with an acute flare-up of pancreatitis. The patient had a previous similar attack in the past that was attributed to alcohol use. The patient admitted to drinking binges of alcohol before each attack of pancreatitis and this episode also he had heavy drinking days before developing these symptoms. The patient was evaluated in the emergency room and was admitted for further evaluation. His labs showed increase in pancreatic enzymes along with increased liver enzymes. The patient was kept n.p.o. and treated properly with IV fluids and pain control. During hospitalization, the patient was noted to have improvement in his pancreatic enzymes followed by a recurrence of his symptoms and further increase in his lipase, which suggests further workup and GI consultation. At the current time, the patient is still symptomatic feeling slightly better than admission time, but still having some abdominal pain and nausea and kept on a clear liquid diet. PAST MEDICAL HISTORY: 1. Recurrent attacks of pancreatitis. 2. Gastroesophageal reflux disease (GERD). 3. Chronic back pain. 4. Hepatitis C of unknown genotype. PAST SURGICAL HISTORY: Cholecystectomy. MEDICATIONS: 1. Prilosec. 2. Ibuprofen PRN. ALLERGIES: NO KNOWN DRUG ALLERGIES. FAMILY HISTORY: Noncontributory. PSYCHOSOCIAL HISTORY: The patient drinks alcohol significantly in the form of binges of drink every three to four months usually followed by acute pancreatitis. The patient is an ex-smoker. Denies IV drug abuse. REVIEW OF SYSTEMS All ten point systems negative other than the ones mentioned in the history of present illness. PHYSICAL EXAMINATION: GENERAL: On examination, the patient was found to be comfortable and not in distress at this time or in pain and hemodynamically stable. HEAD AND NECK: Normocephalic and atraumatic. Pupils equal, round and reactive to light. Supple neck. No lymphadenopathy. No thyromegaly. CHEST: Clear to auscultation bilaterally. No crackles or wheezes. HEART: Regular rate and rhythm. No murmurs. ABDOMEN: Tender on deep palpations. No hepatosplenomegaly. No palpable masses. EXTREMITIES: Normal pulses. No edema. NEUROLOGICAL EXAMINATION: Cranial nerves II through XII are grossly intact. No motor or sensory deficit. SKIN: No discoloration or rashes. LABORATORY STUDIES: Labs show the white count 8.6, hemoglobin and hematocrit within normal limits. Platelet count normal. Chemistry showed a bilirubin down to 1.7, peaked at 2.6. AST and ALT are elevated with an AST of 94 and ALT 146. Lipase 500 today down from 1700 two days ago. IMAGING STUDIES: A CT scan was done on admission that showed abnormal inflammatory changes surrounding the pancreas suggestive of acute pancreatitis but no other features of chronic complication of pancreatitis. ASSESSMENT AND PLAN: A 41-year-old male patient who presented with the following problems: 1. Acute pancreatitis after heavy drinking of alcohol. 2. Recurrent attacks of similar episodes in the past always preceded by binge of alcohol drinking. 3. Status post cholecystectomy. 4. Abnormal liver enzymes, mainly transaminitis and elevation in lipase with slight improvement since admission. RECOMMENDATIONS: 1. Agree with continuing aggressive IV fluid hydration. 2. Clear liquid diet. 3. Check MRCP results. 4. Hepatitis C genotype. 5. Pain control. Further recommendations to follow. Thank you for the consult. Josey UNGER/CHANDNI /4:44 PM /8:38 PM
[2016-11-06] MEDS: ENALAPRILAT 1.25 MG/ML VIAL IV PRN (21:53)
[2016-11-07] VITALS: BP 175/98; PULSE 65; RESP 20; TEMP 97.4; O2SAT 96
[2016-11-07] MEDS: oxyCODONE/ACETAMINOPHEN 10 MG/325 MG TAB PO PRN ×6 (00:14→22:25)
[2016-11-07] MEDS: HYDROmorphone HCL PF 1 MG/ML VIAL IV PUSH PRN ×3 (01:45→08:50)
[2016-11-07 04:00] VITALS: BP 159/98; PULSE 75; RESP 20; TEMP 97.7; O2SAT 96
[2016-11-07 07:35] VITALS: BP 151/89; PULSE 89; RESP 14; TEMP 97.9; O2SAT 96
[2016-11-07] MEDS: NS + KCL 20 MEQ INJ 1,000 ML IV SCH (08:48)
[2016-11-07] MEDS: PANTOPRAZOLE SOD 40 MG DELAYED RELEASE TAB PO SCH (08:48)
[2016-11-07] MEDS ORDERED: LORazepam 1 MG TAB PO ONE (10:00)
[2016-11-07 12:00] VITALS: BP 172/96; PULSE 97; RESP 20; TEMP 98.1; O2SAT 97
--- NOTE | 2016-11-07 12:33 | RADHPO ---
EXAM DATE/TIME: 11/07/2016 11:32 [facility] COMPARISON: No previous studies available for comparison. INDICATIONS : Pancreatitis. MEDICAL HISTORY : Hepatitis C. SURGICAL HISTORY : Cholecystectomy. ENCOUNTER: Subsequent ACUITY: 2 day PAIN SCORE: 3/10 LOCATION: abdomen TECHNIQUE: Multiplanar, multisequence magnetic resonance imaging of the abdomen was performed. High-resolution 3D dataset was utilized to reconstruct maximum-intensity projection (MIP) images. FINDINGS: INTRAHEPATIC BILE DUCTS: Within normal limits. No significant anatomical variant is present. EXTRAHEPATIC BILE DUCTS: The common bile duct measures 5.7 mm No stone or filling defect is identified. GALLBLADDER: No stones, wall thickening, or pericholecystic fluid. LIVER: Normal size and signal intensity. No concerning liver lesion is identified on this non-contrast exam. PANCREAS: The main pancreatic duct is normal in size. There is no significant anatomical variant. Signal inte nsity is within normal limits. No mass is visualized on this non-contrast exam. The peripancreatic i nduration noted on the recent CT is less pronounced today. OTHER: Small hiatal hernia. CONCLUSION: Small hiatal hernia and decreased peripancreatic inflammatory change. No evidence for biliary ductal dilatation. Loc Mcgrath MD on November 07, 2016 at 12:29 Board Certified Radiologist. This report was verified electronically.
[2016-11-07] MEDS ORDERED: MORPHINE SULFATE 4 MG/ML INJ IV PRN (13:30)
[2016-11-07 14:30] LABS: CHLORIDE 103 MEQ/L (98-107); POTASSIUM 4.5 MEQ/L (3.5-5.1); SODIUM (NA) 139 MEQ/L (136-145)
[2016-11-07 14:33] LABS: ANION GAP 11 MEQ/L (5-15); BICARBONATE 25.5 MEQ/L (21.0-32.0)
[2016-11-07 14:34] LABS: BLOOD UREA NITROGEN 8 MG/DL (7-18)
[2016-11-07 14:36] LABS: ALT (GPT) 134 U/L (12-78); AST (GOT) 75 U/L (15-37)
[2016-11-07 14:37] LABS: GLOMERULAR FILTRATION RATE 104 ML/MIN (>89)
[2016-11-07 14:39] LABS: ALKALINE PHOSPHATASE 101 U/L (45-117)
[2016-11-07 16:41] VITALS: BP 164/97; PULSE 83; RESP 16; TEMP 98.5; O2SAT 97
--- NOTE | 2016-11-07 17:05 | HHI.PR ---
Subjective Remarks Follow-up for pancreatitis. Patient states he is feeling better. He ate some chicken broth. Denies nausea or vomiting has not had any episodes of vomiting for days now. He states he may have an adverse reaction to the Dilaudid stating his abdomen becomes bloated and painful after use. He states he felt good this morning after he took Percocet but then after 3 hours the pain came back. Objective Vitals Vital Signs Date Time Temp Pulse Resp B/P Pulse Ox O2 Delivery O2 Flow Rate FiO2 11/07/16 16:41 98.5 83 16 164/97 97 11/07/16 12:00 98.1 97 20 172/96 97 11/07/16 07:35 97.9 89 14 151/89 96 11/07/16 04:00 97.7 75 20 159/98 96 11/07/16 00:00 97.4 65 20 175/98 96 11/06/16 20:00 98.0 70 20 173/99 95 I/O 11/06/16 11/06/16 11/06/16 11/07/16 11/07/16 11/07/16 06:59 14:59 22:59 06:59 14:59 22:59 Intake Total 800 ml 750 ml 80 ml 1260 ml 1306 ml Output Total 900 ml 250 ml 950 ml Balance -100 ml 750 ml -170 ml 310 ml 1306 ml Intake Oral 750 ml 80 ml 60 ml IV Total 800 ml 1200 ml 1306 ml Output Urine Total 900 ml 250 ml 950 ml # Voids 6 # Bowel Movements 0 1 0 0 Result Diagram: 11/04/16 0543 11/07/16 1414 Imaging Last Impressions Abdomen/Pelvis CT 11/03/16 1203 Signed Impressions: Service Date/Time: October 14:00 - CONCLUSION: 1. Abnormal inflammatory changes surrounding the pancreas diagnostic of acute pancreatitis. No acute pancreatitis associated complications are present. 2. There is a small volume of free fluid in the pelvis likely secondary to the pancreatic inflammation. 3. Small hiatal hernia. Yannick Colvin MD Objective Remarks GENERAL: Well-nourished, well-developed patient sitting in bed in no apparent distress. SKIN: Warm and dry. HEAD: Atraumatic. Normocephalic. CARDIOVASCULAR: Regular rate and rhythm. RESPIRATORY: No accessory muscle use. RR normal. GASTROINTESTINAL: Normoactive bowel sounds. MUSCULOSKELETAL: No lower extremity edema. NEUROLOGICAL: Awake and alert. Motor grossly within normal limits. Normal speech. PSYCHIATRIC: Appropriate mood and affect; insight and judgment normal. Urinary Catheter: No Vascular Central Line Catheter: No A/P Problem List: (1) Alcohol-induced acute pancreatitis ICD Code: K85.20 Status: Acute (2) Elevated LFTs ICD Code: R94.5 Status: Acute (3) Alcohol abuse ICD Code: F10.10 Status: Chronic Assessment and Plan 41-year-old male with: Alcohol induced pancreatitis: CT abdomen/pelvis shows inflammation around the pancreas. Lipase trending downward. Patient's pain is improved, but returns when pain medication wears off. Continue pain control with Percocet. Discontinue Dilaudid and IV fluids. Antiemetics as needed. GI was consulted due to persistent pain and advised MRCP which shows decreased peripancreatic inflammation; no ductal issues. Advance diet to full liquid. Elevated LFTs: Secondary to alcohol abuse, history of hepatitis C. Trending downward. HCV genotype ordered per GI. Alcohol abuse, withdrawal: Continue CIWA protocol. Withdrawal precautions. No longer requiring lorazepam. HTN: Persistently elevated. Initially may have been due to alcohol withdrawal but patient is no longer withdrawing and likely has chronic HTN. It is unlikely that the patient will be compliant with regular antihypertensive. -Continue prn Clonidine DVT prophylaxis: SCDs, ISSAC sidhu. Written by Angela Pena PA-C acting as scribe for Dr. Clayton on 11/07/16 at 1600. The documentation accurately reflects the work and decisions performed face-to- face by me Dr. Clayton on 11/07/16 at 1600. Discharge Planning If patient can tolerate eating and Percocet continues to control pain, patient can be discharged likely tomorrow. Problem Qualifiers (1) Alcohol-induced acute pancreatitis: Qualified Code: K85.20 - Alcohol-induced acute pancreatitis without infection or necrosis Angela Pena Nov 07, 2016 17:05
[2016-11-07 20:00] VITALS: BP 154/100; PULSE 96; RESP 18; TEMP 97.7; O2SAT 97
[2016-11-08] VITALS: BP 154/104; PULSE 75; RESP 20; TEMP 98.3; O2SAT 96
[2016-11-08] MEDS: oxyCODONE/ACETAMINOPHEN 10 MG/325 MG TAB PO PRN ×3 (02:27→10:57)
[2016-11-08] MEDS: cloNIDine HCL 0.1 MG TAB PO PRN ×2 (02:27→09:38)
[2016-11-08 04:00] VITALS: BP 154/96; PULSE 74; RESP 18; TEMP 98.1; O2SAT 97
[2016-11-08] MEDS: PANTOPRAZOLE SOD 40 MG DELAYED RELEASE TAB PO SCH (09:38)
--- NOTE | 2016-11-08 10:19 | HHI.DCPOC ---
Discharge Care Plan Diagnosis: (1) Alcohol-induced acute pancreatitis Goals to Promote Your Health * To prevent worsening of your condition and complications * To maintain your health at the optimal level Directions to Meet Your Goals Take your medications as prescribed Follow your dietary instruction Follow activity as directed Keep your appointments as scheduled Take your immunizations and boosters as scheduled If your symptoms worsen call your PCP, if no PCP go to Urgent Care Center or Emergency Room Smoking is Dangerous to Your Health. Avoid second hand smoke Call the 24-hour hour crisis hotline for domestic abuse at Ganesh Whaley Nov 08, 2016 10:19
--- NOTE | 2016-11-08 10:23 | HHI.DS ---
Discharge Summary Admission Date Nov 02, 2016 at 08:54 Discharge Date: Nov 08, 2016 Admitting Diagnosis acute alcohol induced pancreatitis (1) Alcohol-induced acute pancreatitis ICD Code: K85.20 Diagnosis: Principal (2) Elevated LFTs ICD Code: R94.5 Diagnosis: Principal (3) Alcohol abuse ICD Code: F10.10 Diagnosis: Principal Procedures None Brief History - From Admission 41-year-old male with history of hepatitis C, GERD, chronic back pain , drug and alcohol abuse presents with complaint of pancreatitis. Patient states he was hospitalized for this most recently last year. He states he has "a lot" of pain pointing to epigastric region and has had bilious vomiting. states pain started 4 days ago. Patient admits to radiation of pain to back. Admits to diarrhea. He denies any chest pain. Denies dysuria or constipation. Patient rates his last alcoholic drink was yesterday and his states that he will binge drink every 3-4 months. 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 Patient only takes ibuprofen for his back pain. Patient was evaluated in ED yesterday for same symptoms and diagnosed with alcoholic gastritis and prescribed Carafate , Bentyl, and Prilosec. CBC/BMP: 11/04/16 0543 11/07/16 1414 Significant Findings Laboratory Tests Test 11/06/16 11/07/16 08:16 14:14 Random Glucose 112 MG/DL 115 MG/DL (74-106) (74-106) Total Bilirubin 1.7 MG/DL (0.2-1.0) Aspartate Amino Transf 94 U/L (15-37) 75 U/L (15-37) (AST/SGOT) Alanine Aminotransferase 146 U/L (12-78) 134 U/L (12-78) (ALT/SGPT) Albumin 3.2 GM/DL (3.4-5.0) Lipase 500 U/L 414 U/L (73-393) (73-393) Total Protein 8.3 GM/DL (6.4-8.2) Imaging Last Impressions Cholangiopancreatography MRI 11/07/16 0000 Signed Impressions: Service Date/Time: Monday, November 07, 2016 11:32 - CONCLUSION: Small hiatal hernia and decreased peripancreatic inflammatory change. No evidence for biliary ductal dilatation. Loc Mcgrath MD Abdomen/Pelvis CT 11/03/16 1203 Signed Impressions: Service Date/Time: October 14:00 - CONCLUSION: 1. Abnormal inflammatory changes surrounding the pancreas diagnostic of acute pancreatitis. No acute pancreatitis associated complications are present. 2. There is a small volume of free fluid in the pelvis likely secondary to the pancreatic inflammation. 3. Small hiatal hernia. Yannick Colvin MD PE at Discharge GENERAL: Well-nourished, well-developed patient sitting in bed in no apparent distress. SKIN: Warm and dry. HEAD: Atraumatic. Normocephalic. CARDIOVASCULAR: Regular rate and rhythm. RESPIRATORY: No accessory muscle use. RR normal. GASTROINTESTINAL: Normoactive bowel sounds. MUSCULOSKELETAL: No lower extremity edema. NEUROLOGICAL: Awake and alert. Motor grossly within normal limits. Normal speech. PSYCHIATRIC: Appropriate mood and affect; insight and judgment normal. Hospital Course 41 year-old male with known history of hepatitis C, gastric reflux, chronic back pain, drug and alcohol abuse who presented with abdominal pain is located in the epigastric region with nausea vomiting. It was indicated the pain was radiating to his back. Patient had workup done emergency department found to have an elevated lipase level, CT findings of pancreatitis. Patient was admitted to the hospital with IV fluids, nothing by mouth, pain control. Patient tolerated treatment well. Patient to diet was advanced to healthy heart diet without any abnormalities. MRCP was performed which did not indicate any obstructive process. Did actually show improvement of the peripancreatic inflammation. Patient's laboratory studies to improve in a daily basis. Patient clinically improving with appropriate management. Patient is very eager to go home and is requesting if we could supply him with enough medications and get him through this because he does not have a primary medical doctor, insurance, or any money. I notified case management to try arrange patient care systems, blue card, follow up with Dr. Regalado. Will plan discharge once arrangements have been made. Pt Condition on Discharge: Stable Discharge Disposition: Discharge Home Discharge Time: > 30 minutes Discharge Instructions DIET: Follow Instructions for: As Tolerated, No Restrictions Activities you can perform: Regular-No Restrictions Activities to Avoid: Driving for 24 hrs Follow up Referrals: PCP Follow-up - 2 Weeks Continued Medications: Omeprazole (Prilosec) 20 Mg Cap 20 MG PO DAILY #30 Ref 0 CAP Additional Information Written by Ganesh Whaley PA-C, acting as scribe for Dr. Clayton on 11/08/16 at 10:30. The documentation accurately reflects the work and decisions performed face-to- face by Dr. Clayton on 11/08/16 at 10:30. Ganesh Whaley Nov 08, 2016 10:23 Coty Clayton MD Nov 08, 2016 11:30
[2016-11-08] MEDS ORDERED: OXYC1TAB35 PO (10:59)
[2016-11-08 11:59] VITALS: BP 157/99; PULSE 95; RESP 20; TEMP 98.7; O2SAT 96
[2016-11-08 12:00] VITALS: RESP 18
== END 2016-11-08 12:13 | disposition home or self-care (01) | DRG 439 ==
LOC: PHED 06:50 → PHEDA 08:54 → PH3B 10:30
PROVIDERS: ADMIT Family Medicine; ATTEND Family Medicine
DX: K85.20 Alcohol induced acute pancreatitis without necrosis or infection (principal); F10.239 Alcohol dependence with withdrawal, unspecified; I10 Essential (primary) hypertension; G89.29 Other chronic pain; K21.9 Gastro-esophageal reflux disease without esophagitis; M54.9 Dorsalgia, unspecified; B18.2 Chronic viral hepatitis C; Z72.89 Other problems related to lifestyle; Z87.891 Personal history of nicotine dependence
CPT/HCPCS: 74177; 74181; 76377; 80053; 83690; 83735; 85025; 87902; 96361; 96374; 96375; J1170; J2060; J2270; J2405; J2765; J3480; J7030; Q9967